=== PATIENT | female | born 1950 | race Caucasian/White ===

== ENCOUNTER 2016-12-27 12:59 | Emergency (ER) | payer MEDICARE ==
[~2016-12-27 12:59] MED LIST: ABILIFY5 PO; ADIPEX-P37.5 MG OR; AMB10 PO; ASAB PO; ASABAYER PO; BENTYL10 PO; BENTYL20 PO; CLARIT10 PO; CRANBERRY1 TAB OR; CRESTOR20 MG PO; CYMBALTA60 PO; DALIRESP500 MCG PO; EXELON6 MG PO; EXELON9.5T PO; FLUCON2 PO; GELNIQUE TOP; GLUCPH PO; GLYCOLAX; KLONO2 PO; LEVOXYL50 MCG PO; LOP25 PO; LORCET PO; LORTAB10 PO; NEUR300 PO; NEUR600 PO; NEXIUM40 PO; NORCO1 TAB PO; NOVOLOG SC; POTASSIUM OTC PO; PRAVAC PO; PRAVACHOL40 MG PO; PROAIR HFA INH; PROZAC PO; RANITIDINE300 MG PO; SEREVDISC INH; SEROQUEL300 MG PO; SEROQUEL50 MG PO; SINGULAIR1 PO; SOMA250 MG OR; SOMATAB PO; SPIRIVA INH; SYMBICORT 160/41 INH INH; TOPAMAX25 PO; UNIPHYL 400 MG400 MG PO; VSL; X5 PO; XANAX1 MG PO; ZITH250 PO; ZOVI800 PO
[2016-12-27 13:32] LABS: BASOPHILS 0.3 %; BASOPHILS ABSOLUTE 0.03 10/3/uL (0.0-0.16); EOSINOPHILS 0.3 %; EOSINOPHILS ABSOLUTE 0.03 10/3/uL (0.0-0.53); ER CBC TAT 0 Hrs 07 Mins; HEMATOCRIT 45.5 % (36.0-48.0); HEMOGLOBIN 14.6 g/dL (12.0-16.0); IMMATURE GRANULOCYTES 0.3 %; IMMATURE GRANULOCYTES ABSOLUTE 0.03 10/3/uL (0.0-0.11); LYMPHOCYTES 19.3 %; LYMPHOCYTES ABSOLUTE 2.19 10/3/uL (0.67-4.30); MEAN CORPUS HGB CONC 32.1 g/dL (32.0-36.0); MEAN CORPUSCULAR HEMOGLOB 29.6 pg (26.0-34.0); MEAN CORPUSCULAR VOLUME 92.3 fL (80-100); MEAN PLATELET VOLUME 10.7 fL (9.2-13.0); MONOCYTES 6.2 %; NEUTROPHILS 73.6 %; NEUTROPHILS ABSOLUTE 8.38 10/3/uL (2.02-8.40); PLATELET COUNT 296 10/3/uL (150-400); RBC DISTRIBUTION WIDTH 13.9 % (12.0-16.0); RED CELL COUNT 4.93 10/6/uL (4.0-5.6); WHITE BLOOD CELLS 11.4 10/3/uL (4.5-10.5)
[2016-12-27 13:33] LABS: MANUAL DIFF NO %
[2016-12-27 13:39] LABS: ASCORBIC ACID (UR NOT ORDER) NEG (NEG); BILIRUBIN, URINE NEGATIVE (NEG); ER URINALYSIS TAT 0 Hrs 14 Mins; KETONE, URINE NEGATIVE (NEG); LEUKOCYTE ESTERASE(NOT OR NEG (NEG); NITRITE (URINE) NEG (NEG); WBC (NOT ORDERED) (RFLEX) < 1 (0-5)
[2016-12-27 13:48] LABS: ALBUMIN 3.8 G/DL (3.5-5.0); ALKALINE PHOSPHATASE 109 U/L (45-117); CHLORIDE, SERUM 99 MMOL/L (96-112); CO2 (CARBON DIOXIDE) 30 MMOL/L (24-34); CREATININE 0.87 MG/DL (0.55-1.02); GFR AFRICAN AMERICAN 82 ML/MIN (>=60); GFR NON AFRICAN AMERICAN 70 ML/MIN (>=60); GLOBULIN 3.7 G/DL (2.5-4.1); GLUCOSE, SERUM 103 MG/DL (60-99); POTASSIUM, SERUM 4.5 MMOL/L (3.5-5.3); SGOT(AST) 14 U/L (5-40); SGPT(ALT) 18 U/L (5-65); SODIUM, SERUM 137 MMOL/L (135-148); TOTAL BILIRUBIN 0.7 MG/DL (0-1.2); TOTAL PROTEIN 7.5 G/DL (6.0-8.5)
[2016-12-27 13:49] LABS: BUN (BLOOD UREA NITROGEN) 10 MG/DL (6-23)
== END 2016-12-27 17:52 | disposition home or self-care (01) ==
LOC: ER 12:59
PROVIDERS: Hospitalist
DX: R19.7 Diarrhea, unspecified (principal); R11.0 Nausea; R10.9 Unspecified abdominal pain; J44.9 Chronic obstructive pulmonary disease, unspecified; F17.200 Nicotine dependence, unspecified, uncomplicated; F32.9 Major depressive disorder, single episode, unspecified; Z90.710 Acquired absence of both cervix and uterus; Z88.0 Allergy status to penicillin; Z79.899 Other long term (current) drug therapy
CPT/HCPCS: 74176; 80053; 81001; 83690; 85025; 99284